=== PATIENT | male | born 1990 | race African-American/Black ===

== ENCOUNTER 2025-05-22 13:38 | Emergency (ER) | payer MEDICAID ==
[~2025-05-22] VITALS: Ht 182.9 cm; Wt 79.0 kg
[2025-05-22 13:53] VITALS: TEMP 36.9; O2SAT 100
[2025-05-22] MEDS ORDERED: IBUP-2028 MT (15:15)
[2025-05-22 16:12] VITALS: BP 130/79; PULSE 64; RESP 16; O2SAT 99
== END 2025-05-22 16:13 | disposition home or self-care (01) ==
LOC: ER 13:38
DX: S93.401A Sprain of unspecified ligament of right ankle, initial encounter (principal); V49.9XXA Car occupant (driver) (passenger) injured in unspecified traffic accident, initial encounter; Y93.89 Activity, other specified; Y92.89 Other specified places as the place of occurrence of the external cause; Y99.8 Other external cause status
CPT/HCPCS: 73600; 99283; A6449; Z7610